=== PATIENT | male | born 1965 | race Hispanic/Latino ===

== ENCOUNTER → 2018-02-03 | Day surgery (SDC) | payer BC ==
[~2018-02-03] MED LIST: FENTANYL CITRATE/PF 100MCG/2 ML INJ ONE; LIDOCAINE HCL 2% LOCAL INJ 5 ML SDV VIAL INJ ONE; MIDAZOLAM HCL 2 MG/2 ML VIAL ONE; PHENYTOIN SODI100 MG PO; PROPOFOL IV EMULSION 10 MG/ML 20 ML VIAL ONE
[2018-02-03 14:50] VITALS: BP 113/77
--- NOTE | 2018-02-03 15:02 | Operative Report ---
DATE OF PROCEDURE: February 03, 2018 REFERRING PHYSICIAN: Dr. Harry Arias. PROCEDURES PERFORMED: Colonoscopy and polypectomy. INDICATIONS FOR COLONOSCOPY: Colorectal cancer screening. MEDICATION: Patient was done under MAC. Please see anesthesiologist's note. PROCEDURE: With the patient in the left lateral decubitus position, the flexible fiberoptic Olympus colonoscope was inserted into the rectum with ease and advanced all the way to the cecum. One polyp was snared from the cecum. The scope was then withdrawn slowly, and an additional polyp was snared from the ascending colon. The transverse and descending appeared to be within normal limits. One polyp was hot biopsied in the sigmoid colon. The rectum appeared to be within normal limits. The scope was then retroflexed into the distal rectum and small internal hemorrhoids were noted, none of which was actively bleeding. The scope was then straightened out. It was subsequently withdrawn. Patient tolerated procedure well. IMPRESSION: 1. Cecal polyp snared. 2. Ascending colon polyp snared. 3. Sigmoid colon polyp hot biopsied. 4. Internal hemorrhoids, none actively bleeding. PLAN: Follow up histology. Initiate high-fiber low-fat diet. Initiate high-fiber supplement. Patient will need a followup colonoscopy in 3 years. Job#: [id number] EV cc:HARRY ARIAS MD
== END | disposition home or self-care (01) ==
LOC: ENDO 09:50
PROVIDERS: ATTEND Internal Medicine Gastroenterology
DX: Z12.11 Encounter for screening for malignant neoplasm of colon (principal); D12.0 Benign neoplasm of cecum; D12.2 Benign neoplasm of ascending colon; K64.8 Other hemorrhoids; G40.909 Epilepsy, unspecified, not intractable, without status epilepticus; Z01.810 Encounter for preprocedural cardiovascular examination; Z68.27 Body mass index [BMI] 27.0-27.9, adult
CPT/HCPCS: 45384; 45385; 93005; J2001; J2250; 45378